=== PATIENT | male | born 1945 | race Caucasian/White ===

== ENCOUNTER 2018-06-22 11:42 | Day surgery (SDC) | payer MEDICARE ==
[~2018-06-22] VITALS: Ht 170.2 cm; Wt 76.4 kg
[~2018-06-22 11:42] MED LIST: FISH OIL 1,2001 EACH PO; METO25ER PO; MULTI VITAMIN1 EACH PO; Simvastatin20 MG PO; Super Calcium600 MG PO; WARF4 PO
== END 2018-06-22 13:55 | disposition home or self-care (01) ==
LOC: ORSCSDS 11:42
PROVIDERS: Ophthalmology
PROC: 08RJ3JZ Replacement of Right Lens with Synthetic Substitute, Percutaneous Approach (ICD-10-PCS; principal; 2018-06-22 13:00)
DX: H25.11 Age-related nuclear cataract, right eye (principal); I10 Essential (primary) hypertension; I49.9 Cardiac arrhythmia, unspecified; I69.351 Hemiplegia and hemiparesis following cerebral infarction affecting right dominant side; Z79.01 Long term (current) use of anticoagulants
CPT/HCPCS: J2001; J2250; J3010; J7120; V2632

== ENCOUNTER 2020-03-24 12:53 | Emergency (ER) | payer MEDICARE ==
[~2020-03-24] VITALS: Ht 172.7 cm; Wt 72.1 kg
[2020-03-24 13:29] LABS: BASOPHILS ABSOLUTE AUTO 0.01 K/mm3 (0.00-0.23); BASOPHILS PERCENT AUTO 0 % (0-2); EOSINOPHILS ABSOLUTE AUTO 0.03 K/mm3 (0.00-0.68); EOSINOPHILS PERCENT AUTO 1 % (0-6); Hematocrit 29.9 % (37.0-53.0); Hemoglobin 9.2 g/dL (13.5-17.5); IMMATURE GRAN ABSOLUTE AUTO 0.02 K/mm3 (0.00-0.10); IMMATURE GRAN PERCENT AUTO 1 % (0-1); LYMPHOCYTES ABSOLUTE AUTO 2.59 K/mm3 (0.84-5.20); LYMPHOCYTES PERCENT AUTO 59 % (21-46); MONOCYTES ABSOLUTE AUTO 0.08 K/mm3 (0.16-1.47); MONOCYTES PERCENT AUTO 2 % (4-13); Mean Corpuscular HGB 35.5 pg (26.0-34.0); Mean Corpuscular HGB Conc 30.8 g/dL (31.5-36.5); Mean Corpuscular Volume 115 fL (80-100); Mean Platelet Volume 10.3 fL (9.1-12.4); NEUTROPHILS ABSOLUTE AUTO 1.68 K/mm3 (1.96-9.15); NEUTROPHILS PERCENT AUTO 38 % (41-73); Platelet Count 250 K/mm3 (150-400); RDW Standard Deviation 64.4 fL (35.1-46.3); Red Blood Cell Count 2.59 M/mm3 (4.30-5.90); White Blood Cell Count 4.41 K/mm3 (4.00-11.30)
[2020-03-24 13:39] LABS: Alanine Aminotransfer (ALT/SGP 17 U/L (12-78); Albumin, Blood 2.5 g/dL (3.4-5.0); Albumin/Globulin Ratio 0.6 (0.8-1.8); Alk Phos 82 U/L (50-136); Anion Gap 5 mmol/L (6-16); Aspartate Aminotrans (AST/SGOT 16 U/L (12-37); Bilirubin, Total 0.5 mg/dL (0.1-1.0); Blood Urea Nitrogen 14 mg/dL (8-24); Bun/Creatinine Ratio 17.4 (12.0-20.0); CO2, Blood 28 mmol/L (21-32); Calcium, Blood 8.7 mg/dL (8.5-10.1); Chloride, Blood 109 mmol/L (98-108); Globulin, Blood 4.3 g/dL (2.2-4.0); Glomerular Filtration Rate >60 (60-); Glucose, Blood 123 mg/dL (70-99); Potassium, Blood 4.5 mmol/L (3.5-5.5); Sodium, Blood 142 mmol/L (136-145); Total Protein, Blood 6.8 g/dL (6.4-8.2)
== END 2020-03-24 14:22 | disposition home or self-care (01) ==
LOC: ER 12:53
PROVIDERS: Emergency Medicine
DX: I95.9 Hypotension, unspecified (principal); R61 Generalized hyperhidrosis; T45.1X5A Adverse effect of antineoplastic and immunosuppressive drugs, initial encounter; Z79.01 Long term (current) use of anticoagulants; Z88.5 Allergy status to narcotic agent; Z79.899 Other long term (current) drug therapy
CPT/HCPCS: 36415; 80053; 85025; 93005; 93010; 96360; 99285-25; J7030

== ENCOUNTER 2022-12-02 12:55 | Inpatient (IN) | payer MEDICARE ==
[~2022-12-02] VITALS: Ht 170.2 cm; Wt 69.2 kg
[~2022-12-02 12:55] MED LIST changes: -DECADRON4 M1 PO
[2022-12-02 14:20] LABS: BASOPHILS ABSOLUTE AUTO 0.01 K/mm3 (0.00-0.23); BASOPHILS PERCENT AUTO 0 % (0-2); EOSINOPHILS ABSOLUTE AUTO 0.01 K/mm3 (0.00-0.68); EOSINOPHILS PERCENT AUTO 0 % (0-6); IMMATURE GRAN ABSOLUTE AUTO 0.03 K/mm3 (0.00-0.10); IMMATURE GRAN PERCENT AUTO 1 % (0-1); LYMPHOCYTES ABSOLUTE AUTO 1.53 K/mm3 (0.84-5.20); LYMPHOCYTES PERCENT AUTO 35 % (21-46); MONOCYTES ABSOLUTE AUTO 0.79 K/mm3 (0.16-1.47); MONOCYTES PERCENT AUTO 18 % (4-13); Mean Corpuscular HGB 43.3 pg (26.0-34.0); Mean Corpuscular HGB Conc 33.7 g/dL (31.5-36.5); Mean Corpuscular Volume 128 fL (80-100); Mean Platelet Volume 9.8 fL (9.1-12.4); NEUTROPHILS ABSOLUTE AUTO 2.02 K/mm3 (1.96-9.15); NEUTROPHILS PERCENT AUTO 46 % (41-73); NRBC ABSOLUTE 0.02 K/mm3 (0.00-0.02); NRBC Auto 0.5 /100 WBC (0.0-0.2); Platelet Count 172 K/mm3 (150-400); RDW Standard Deviation 68.5 fL (35.1-46.3); Red Blood Cell Count 1.27 M/mm3 (4.30-5.90); White Blood Cell Count 4.39 K/mm3 (4.00-11.30)
[2022-12-02 14:24] LABS: Hemoglobin 5.5 g/dL (13.5-17.5)
[2022-12-02 14:25] LABS: Hematocrit 16.3 % (37.0-53.0)
[2022-12-02 14:33] LABS: Albumin, Blood 3.2 g/dL (3.4-5.0); Albumin/Globulin Ratio 0.8 (0.8-1.8); Bilirubin, Total 2.1 mg/dL (0.1-1.0); Bun/Creatinine Ratio 25.7 (12.0-20.0); Calcium, Blood 8.6 mg/dL (8.5-10.1); Creatinine, Blood 1.05 mg/dL (0.60-1.20); Globulin, Blood 3.9 g/dL (2.2-4.0); Potassium, Blood 4.2 mmol/L (3.5-5.5); Total Protein, Blood 7.1 g/dL (6.4-8.2)
[2022-12-02 20:13] LABS: Performing Lab BLOODWORKS; Test Name TYPE AND ABID
[2022-12-02 21:30] LABS: Hematocrit 16.7 % (37.0-53.0); Hemoglobin 5.5 g/dL (13.5-17.5)
[2022-12-02 22:46] VITALS: BP 125/73
--- NOTE | 2022-12-03 01:00 | NUR ---
ARRIVAL TO [facility]/SAFETY & EDUCATION NOTE PT ARRIVED TO [facility] AT APPROXIMATELY 2235. PT TRANSFERED FROM ER [facility] TO HOSPITAL BED WITH SBA. PT A&Ox4, COMMUNICATES NEEDS APPROPRIATELY, ORIENTED TO CALL LIGHT/UNIT. BP STABLE, AFIB 70's, DENIES CP/PRESSURE. SpO2> 92% RA, DENIES SOB. NO S/S OF BLEEDING. BED IN LOWEST POSITION, CALL LIGHT IN REACH. PT & FAMILY EDUCATED RE: IGNITION SOURCES & RISK OF INJURY WHILE OXYGEN IS IN USE. PT DENIES SMOKING AND PT & FAMILY VERBALIZE UNDERSTANDING.
[2022-12-03 01:06] LABS: Hematocrit 16.2 % (37.0-53.0); Hemoglobin 5.2 g/dL (13.5-17.5)
[2022-12-03 03:19] VITALS: BP 110/70
[2022-12-03 05:22] LABS: Hematocrit 18.4 % (37.0-53.0)
--- NOTE | 2022-12-03 05:22 | NUR ---
SHIFT SUMMARY SEE PREVIOUS NOTE. PT A&Ox4, CALLS AND COMMUNICATES NEEDS APPROPRIATELY. BP STABLE, AFIB 50-70's, DENIES CP/PRESSURE. SpO2> 92% RA, DENIES SOB. USES URINAL AT BEDSIDE WITH ASSISTANCE. NO BM THIS SHIFT. NO S/S OF BLEEDING. NO OTHER EVENTS, WILL REPORT TO ONCOMING RN.
[2022-12-03 05:45] LABS: Albumin, Blood 3.3 g/dL (3.4-5.0); Albumin/Globulin Ratio 0.8 (0.8-1.8); Bilirubin, Total 1.6 mg/dL (0.1-1.0); Calcium, Blood 8.6 mg/dL (8.5-10.1); Creatinine, Blood 0.87 mg/dL (0.60-1.20); Globulin, Blood 4.2 g/dL (2.2-4.0); Magnesium, Blood 2.2 mg/dL (1.6-2.4); Potassium, Blood 4.3 mmol/L (3.5-5.5); Total Protein, Blood 7.5 g/dL (6.4-8.2)
[2022-12-03 07:42] VITALS: BP 116/71
[2022-12-03 09:38] LABS: Hemoglobin 5.9 g/dL (13.5-17.5)
[2022-12-03 13:36] VITALS: BP 128/69
[2022-12-03] MEDS ORDERED: DECADRON4 M1 PO ×2 (13:38)
--- NOTE | 2022-12-03 14:01 | NUR ---
PT D/C WENT OVER D/C INFORMATION WITH THE PT AND HIS . ANSWERED ALL QUESTIONS. KWADWO HORN D/C'D IV AND TOOK THE PT OUT VIA WHEELE CHAIR. ALL BELONGINGS SENT HOME. D/C TIME : 1400
[2022-12-04 07:10] LABS: IRON BIND.CAP.(TIBC) 224 ug/dL (250-450); IRON SATURATION 34 % (15-55); IRON, SERUM 76 ug/dL (38-169); UIBC 148 ug/dL (111-343)
[2022-12-05 08:11] LABS: FERRITIN 1093 ng/mL (30-400)
== END 2022-12-03 14:00 | disposition home or self-care (01) | DRG 809 ==
LOC: ER 12:55 → PCU 22:26
PROVIDERS: Student in an Organized Health Care Education/Training Program; ADMIT Nurse Practitioner Acute Care
DX: D59.9 Acquired hemolytic anemia, unspecified (principal); C85.90 Non-Hodgkin lymphoma, unspecified, unspecified site; I48.20 Chronic atrial fibrillation, unspecified; E78.5 Hyperlipidemia, unspecified; Z98.42 Cataract extraction status, left eye; Z88.5 Allergy status to narcotic agent; Z79.899 Other long term (current) drug therapy; Z98.890 Other specified postprocedural states; Z87.39 Personal history of other diseases of the musculoskeletal system and connective tissue
CPT/HCPCS: 36415; 80053; 82728; 83540; 83550; 83735; 84550; 85014; 85018; 85025; 86880; 96374; 97112; 97116; 97162; 97165; 97535; 99284-25; J1100; J7030

== ENCOUNTER → 2022-12-02 | Outpatient (CLI) | payer MEDICARE ==
[~2022-12-02] MED LIST changes: +DECADRON4 M1 PO; +GABA300 PO; +METOPROLOL SUCC25 MG PO; +PREGABALIN75 MG PO; +Prednisone10 MG; +XARELTO20 M1 PO; +ZOCOR20 MG PO
[2022-12-02 11:41] LABS: BASOPHILS ABSOLUTE AUTO 0.01 K/mm3 (0.00-0.23); BASOPHILS PERCENT AUTO 0 % (0-2); EOSINOPHILS ABSOLUTE AUTO 0.01 K/mm3 (0.00-0.68); EOSINOPHILS PERCENT AUTO 0 % (0-6); IMMATURE GRAN ABSOLUTE AUTO 0.03 K/mm3 (0.00-0.10); IMMATURE GRAN PERCENT AUTO 1 % (0-1); LYMPHOCYTES ABSOLUTE AUTO 1.21 K/mm3 (0.84-5.20); LYMPHOCYTES PERCENT AUTO 29 % (21-46); MONOCYTES ABSOLUTE AUTO 0.69 K/mm3 (0.16-1.47); MONOCYTES PERCENT AUTO 16 % (4-13); Mean Corpuscular HGB 42.7 pg (26.0-34.0); Mean Corpuscular HGB Conc 32.9 g/dL (31.5-36.5); Mean Corpuscular Volume 130 fL (80-100); Mean Platelet Volume 10.1 fL (9.1-12.4); NEUTROPHILS ABSOLUTE AUTO 2.27 K/mm3 (1.96-9.15); NEUTROPHILS PERCENT AUTO 54 % (41-73); Platelet Count 187 K/mm3 (150-400); RDW Coefficient Variation 17.2 % (11.7-14.2); RDW Standard Deviation 70.2 fL (35.1-46.3); Red Blood Cell Count 1.31 M/mm3 (4.30-5.90); White Blood Cell Count 4.22 K/mm3 (4.00-11.30)
[2022-12-02 11:48] LABS: Hemoglobin 5.6 g/dL (13.5-17.5)
[2022-12-02 12:03] LABS: Albumin, Blood 3.5 g/dL (3.4-5.0); Albumin/Globulin Ratio 0.9 (0.8-1.8); Bilirubin, Total 2.1 mg/dL (0.1-1.0); Bun/Creatinine Ratio 26.2 (12.0-20.0); Calcium, Blood 8.7 mg/dL (8.5-10.1); Creatinine, Blood 1.03 mg/dL (0.60-1.20); Potassium, Blood 4.2 mmol/L (3.5-5.5); Total Protein, Blood 7.5 g/dL (6.4-8.2)
== END ==
LOC: LAB SHORT 10:45 → LAB 10:45
PROVIDERS: Physician Assistant
DX: R53.83 Other fatigue (principal); R53.1 Weakness
CPT/HCPCS: 80053; 85025

== ENCOUNTER 2025-01-06 19:42 | Inpatient (IN) | payer OTHER ==
[~2025-01-06] VITALS: Ht 172.7 cm; Wt 71.7 kg
[~2025-01-06 19:42] MED LIST changes: +DECADRON4 M1 PO; +Flomax0.4 MG PO
[2025-01-06] MEDS ORDERED: BRUKINSA80 MG PO (21:26)
[2025-01-06] MEDS ORDERED: FINA5 PO (21:27)
[2025-01-06] MEDS ORDERED: FISH OIL 1,2001 EAC4 PO (21:27)
[2025-01-06] MEDS ORDERED: XARELTO20 MG PO (21:27)
[2025-01-06 21:31] LABS: BASOPHILS ABSOLUTE AUTO 0.04 K/mm3 (0.00-0.23); BASOPHILS PERCENT AUTO 1 % (0-2); EOSINOPHILS ABSOLUTE AUTO 0.37 K/mm3 (0.00-0.68); EOSINOPHILS PERCENT AUTO 8 % (0-6); Hematocrit 31.4 % (37.0-53.0); Hemoglobin 10.4 g/dL (13.5-17.5); IMMATURE GRAN ABSOLUTE AUTO 0.01 K/mm3 (0.00-0.10); IMMATURE GRAN PERCENT AUTO 0 % (0-1); LYMPHOCYTES ABSOLUTE AUTO 1.75 K/mm3 (0.84-5.20); LYMPHOCYTES PERCENT AUTO 36 % (21-46); MONOCYTES ABSOLUTE AUTO 0.63 K/mm3 (0.16-1.47); MONOCYTES PERCENT AUTO 13 % (4-13); Mean Corpuscular HGB Conc 33.1 g/dL (31.5-36.5); Mean Corpuscular Volume 100 fL (80-100); NEUTROPHILS ABSOLUTE AUTO 2.06 K/mm3 (1.96-9.15); NEUTROPHILS PERCENT AUTO 42 % (41-73); NRBC ABSOLUTE 0.00 K/mm3 (0.00-0.02); NRBC Auto 0.0 /100 WBC (0.0-0.2); Platelet Count 110 K/mm3 (150-400); RDW Coefficient Variation 14.3 % (11.7-14.2); RDW Standard Deviation 52.4 fL (35.1-46.3)
[2025-01-06 21:51] LABS: Alanine Aminotransfer (ALT/SGP 23.0 U/L (12-78); Albumin, Blood 2.8 g/dL (3.4-5.0); Albumin/Globulin Ratio 1.3 (0.8-1.8); Anion Gap 7.0 mmol/L (3-11); Aspartate Aminotrans (AST/SGOT 19.0 U/L (12-37); Bilirubin, Total 0.3 mg/dL (0.1-1.0); Blood Urea Nitrogen 13.0 mg/dL (8-24); CO2, Blood 22.0 mmol/L (21-32); Calcium, Blood 6.6 mg/dL (8.5-10.1); Chloride, Blood 121.0 mmol/L (98-108); Creatinine, Blood 0.77 mg/dL (0.60-1.20); Globulin, Blood 2.1 g/dL (2.2-4.0); Glucose, Blood 91.0 mg/dL (70-99); Potassium, Blood 3.0 mmol/L (3.5-5.5); Sodium, Blood 147.0 mmol/L (136-145); Total Protein, Blood 4.9 g/dL (6.4-8.2)
[2025-01-06] MEDS ORDERED: NS 1,000 ML IV ONE (23:00)
[2025-01-06] MEDS ORDERED: FentaNYL Citrate 50 MCG/ML 2 ML Injection IV PRN (23:00)
[2025-01-06] MEDS ORDERED: Ondansetron HCl 2 MG / ML 2ML Vial IV PRN (23:00)
[2025-01-06 23:27] LABS: Prothrombin Time Results 14.0 Sec (9.7-11.5)
[2025-01-07] VITALS (20 sets, daily range): BP systolic 114–176; BP diastolic 66–102
[2025-01-07] MEDS ORDERED: CALCIUM GLUC IN NACL, ISO-OSM 50 ML IV ONE (01:10)
--- NOTE | 2025-01-07 01:29 | NUR ---
PT ARRIVED TO ROOM 215 FROM ER. PT A/O X4, VSS, HR IRREGULAR, AFIB 60'S PER TELE MONITOR, SATS >90% ON RA. LLE SHORTENED/EXT ROTATED, CAP REFILL WNL, PT DENIES N/T. PT REP PAIN 3-10. FEW SCATTERED BRUISES, SKIN OTHERWISE CDI. PT REP LAST TOOK XARELTO 8/16 PM. PT ORIENTED TO ROOM/CALL LIGHT AND NPO STATUS. ORTHO CONSULTED, AWAITING SURGERY PLANS.
[2025-01-07 01:48] LABS: Magnesium, Blood 1.6 mg/dL (1.6-2.4); Phosphorus, Blood 2.1 mg/dL (2.5-4.9)
[2025-01-07] MEDS ORDERED: HYDROmorphone HCl/Pf 1MG SYR IV ONE (03:00)
[2025-01-07] MEDS ORDERED: Potassium Phosphate Dibasic 20 MM in Dextrose 5% 500 ML IV STA (06:10)
--- NOTE | 2025-01-07 07:44 | NUR ---
PT VSS SINCE ARRIVING TO FLOOR; HR AFIB 60'S, SATS >90% ON RA. PT REP BETTER PAIN RELIEF AFTER 1X DOSE IV DILAUDID. REP PAIN 06/01 THIS AM. PT NPO AWAITING SURGERY PLANS. BEDSIDE REP GIVEN TO ROME Osei RN.
[2025-01-07] MEDS ORDERED: ZANUBRUTINIB PO SCH (09:00)
[2025-01-07 12:26] LABS: BASOPHILS ABSOLUTE AUTO 0.04 K/mm3 (0.00-0.23); BASOPHILS PERCENT AUTO 1 % (0-2); EOSINOPHILS ABSOLUTE AUTO 0.07 K/mm3 (0.00-0.68); EOSINOPHILS PERCENT AUTO 1 % (0-6); Hematocrit 37.4 % (37.0-53.0); Hemoglobin 12.7 g/dL (13.5-17.5); IMMATURE GRAN ABSOLUTE AUTO 0.02 K/mm3 (0.00-0.10); IMMATURE GRAN PERCENT AUTO 0 % (0-1); LYMPHOCYTES ABSOLUTE AUTO 0.95 K/mm3 (0.84-5.20); LYMPHOCYTES PERCENT AUTO 14 % (21-46); MONOCYTES ABSOLUTE AUTO 1.01 K/mm3 (0.16-1.47); MONOCYTES PERCENT AUTO 15 % (4-13); Mean Corpuscular HGB Conc 34.0 g/dL (31.5-36.5); Mean Corpuscular Volume 98 fL (80-100); NEUTROPHILS ABSOLUTE AUTO 4.69 K/mm3 (1.96-9.15); NEUTROPHILS PERCENT AUTO 69 % (41-73); NRBC ABSOLUTE 0.00 K/mm3 (0.00-0.02); NRBC Auto 0.0 /100 WBC (0.0-0.2); Platelet Count 122 K/mm3 (150-400); RDW Coefficient Variation 14.3 % (11.7-14.2); RDW Standard Deviation 51.8 fL (35.1-46.3)
--- NOTE | 2025-01-07 12:30 | NUR ---
PT TRANSFERED TO SURGERY.
[2025-01-07] MEDS ORDERED: Bupivacaine 0.5% W/EPI 1:200000 SDV 30 ML Vial ONE (12:43)
--- NOTE | 2025-01-07 12:54 | NUR ---
PT HERE VIA BED FROM ROOM 215 FOR LEFT HIP FIXATION Patient confirms NPO status and agrees with scheduled surgery. History, Chart, Medications and Allergies reviewed before start of procedure.Pre-Op teaching done. Pt verbalizes understanding.
[2025-01-07 12:56] LABS: Alanine Aminotransfer (ALT/SGP 28.0 U/L (12-78); Albumin, Blood 3.6 g/dL (3.4-5.0); Albumin/Globulin Ratio 1.5 (0.8-1.8); Anion Gap 6.0 mmol/L (3-11); Aspartate Aminotrans (AST/SGOT 18.0 U/L (12-37); Bilirubin, Total 1.0 mg/dL (0.1-1.0); Blood Urea Nitrogen 10.0 mg/dL (8-24); CO2, Blood 29.0 mmol/L (21-32); Chloride, Blood 108.0 mmol/L (98-108); Creatinine, Blood 0.83 mg/dL (0.60-1.20); Globulin, Blood 2.4 g/dL (2.2-4.0); Glucose, Blood 126.0 mg/dL (70-99); Potassium, Blood 4.4 mmol/L (3.5-5.5); Sodium, Blood 139.0 mmol/L (136-145); Total Protein, Blood 6.0 g/dL (6.4-8.2)
[2025-01-07 12:57] LABS: Calcium, Blood 8.6 mg/dL (8.5-10.1)
[2025-01-07] MEDS ORDERED: Rocuronium Bromide 10 MG/ML 5ML Injection IV ONE (13:08)
[2025-01-07] MEDS ORDERED: Dexamethasone Sod Phos 10 MG/ML 1ML VIAL ONE (13:08)
[2025-01-07] MEDS ORDERED: Ondansetron HCl 2 MG / ML 2ML Vial ONE (13:08)
[2025-01-07] MEDS ORDERED: Sugammadex Sodium 200 MG/2ML SDV (100 MG/ML) ONE (13:09)
[2025-01-07] MEDS ORDERED: FentaNYL Citrate 50 MCG/ML 2 ML Injection ONE (13:11)
[2025-01-07] MEDS ORDERED: CeFAZolin Sodium 2,000 MG in NS 100 ML IV SCH ×2 (13:15→20:00)
[2025-01-07] MEDS ORDERED: ePHEDrine Sulfate 50 MG/ML 1ML Injection ONE (13:23)
[2025-01-07] MEDS ORDERED: Labetalol HCL 5 MG/ML 4ML Injection (Single Dose) IV PRN (14:45)
[2025-01-07] MEDS ORDERED: Ondansetron HCl 2 MG / ML 2ML Vial IV PRN (14:45)
[2025-01-07] MEDS ORDERED: ePHEDrine Sulfate 50 MG/ML 1ML Injection IV PRN (14:45)
[2025-01-07] MEDS ORDERED: FentaNYL Citrate 50 MCG/ML 2 ML Injection IV PRN (14:45)
[2025-01-07] MEDS ORDERED: HYDROmorphone HCl/Pf 1MG SYR IV PRN (14:45)
--- NOTE | 2025-01-07 18:21 | NUR ---
SHIFT SUMMARY PT IS A/OX4. SURGICAL FIX FOR L HIP FRACTURE THIS AFTERNOON. PT DECLINING PAIN MEDICATION SINCE RETURN FROM SURGERY. PT RUNNING AFIB ON TELE. PER REVENUE STAMP CUTTER, SINCE RETURN FROM SURGERY, PT HAS BECOME INCREASINGLY MORE TACHYCARDIC REACHING THE 110-130'S. PHYSICAN NOTIFIED. PT RECIEVED PRN METOPROLOL PO PER JUL. AT BEDSIDE THROUGHOUT THIS EVENING. PT IS PLEASANT AND COOPERATIVE WITH CARE AND CALLS APPROPRIATELY USING THE CALL LIGHT.
[2025-01-07] MEDS ORDERED: BRUKINSA 80 MG PO SCH (21:00)
[2025-01-08 03:14] VITALS: BP 109/71
[2025-01-08 03:28] VITALS: BP 109/71
--- NOTE | 2025-01-08 04:47 | NUR ---
FACSIMILE MACHINE OPERATOR SUMMARY PT IS POD 0 FOR L HIP REPAIR. PT HAS GAUZE DRESSING WITH PRESSURE TAPE TO L HIP THAT HIS C/D/I. PT ABLE TO WIGGLE TOES AND DENIES N/T. PT HAS DENIED NEEDING PAIN MEDS ASIDE FROM SCHEDULED TYLENOL. PT STATES WHEN HE DOESN'T MOVE HE HAS VERY LITTLE PAIN. 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 POST OP ABX COMPLETED. PT ACCIDENTALLY REMOVED HIS IV WHILE SLEEPING, NEW IV PLACED TO RFA. PT ABLE TO STAND AT BEDSIDE USING FWW BUT DID NOT TAKE ANY STEPS. VSS, WCTM.
[2025-01-08 06:28] LABS: BASOPHILS ABSOLUTE AUTO 0.01 K/mm3 (0.00-0.23); BASOPHILS PERCENT AUTO 0 % (0-2); EOSINOPHILS ABSOLUTE AUTO 0.00 K/mm3 (0.00-0.68); EOSINOPHILS PERCENT AUTO 0 % (0-6); Hematocrit 29.1 % (37.0-53.0); Hemoglobin 9.8 g/dL (13.5-17.5); IMMATURE GRAN ABSOLUTE AUTO 0.06 K/mm3 (0.00-0.10); IMMATURE GRAN PERCENT AUTO 1 % (0-1); LYMPHOCYTES ABSOLUTE AUTO 0.89 K/mm3 (0.84-5.20); LYMPHOCYTES PERCENT AUTO 8 % (21-46); MONOCYTES ABSOLUTE AUTO 1.44 K/mm3 (0.16-1.47); MONOCYTES PERCENT AUTO 14 % (4-13); Mean Corpuscular HGB Conc 33.7 g/dL (31.5-36.5); Mean Corpuscular Volume 100 fL (80-100); NEUTROPHILS ABSOLUTE AUTO 8.24 K/mm3 (1.96-9.15); NEUTROPHILS PERCENT AUTO 77 % (41-73); NRBC ABSOLUTE 0.00 K/mm3 (0.00-0.02); NRBC Auto 0.0 /100 WBC (0.0-0.2); Platelet Count 105 K/mm3 (150-400); RDW Coefficient Variation 14.3 % (11.7-14.2); RDW Standard Deviation 52.8 fL (35.1-46.3)
[2025-01-08 06:42] LABS: Anion Gap 7.0 mmol/L (3-11); Blood Urea Nitrogen 18.0 mg/dL (8-24); CO2, Blood 28.0 mmol/L (21-32); Calcium, Blood 8.2 mg/dL (8.5-10.1); Chloride, Blood 106.0 mmol/L (98-108); Creatinine, Blood 1.26 mg/dL (0.60-1.20); Glucose, Blood 135.0 mg/dL (70-99); Potassium, Blood 4.4 mmol/L (3.5-5.5); Sodium, Blood 137.0 mmol/L (136-145)
[2025-01-08 07:07] VITALS: BP 112/73
--- NOTE | 2025-01-08 12:20 | NUR ---
PAUSE NUT CULLER NOTIFIED THIS RN DUE TO A 4.9 SECOND PAUSE. PATIENT ASYMPTOMATIC - SITTING UP IN CHAIR EATING LUNCH. VSS. LOUIE NOTIFIED - ORDER RCVD TO PLACE ZIO PATCH PRIOR TO DC. PATIENT TO WEAR X2 WEEKS AND TO FOLLOW UP W/ CARDIOLOGY.
[2025-01-08 12:23] VITALS: BP 119/76
[2025-01-08] MEDS ORDERED: Percocet 5-3251 EACH PO (12:32)
[2025-01-08 15:19] VITALS: BP 127/80
--- NOTE | 2025-01-08 15:37 | NUR ---
DISCHARGE NOTE PATIENT ALERT AND ORIENTED X4. COMMUNICATES NEEDS EFFECTIVELY. FOLLOWS COMMANDS APPROPRIATELY. VSS. TELEMETRY SHOWING AFLUTTER 40s-50s w/ SLEEP AND 70s-80s WHILE AWAKE. X1 4.9 SECOND PAUSE (SEE PREVIOUS NOTE) - ASYMPTOMATIC. NO FURTHER EVENTS REPORTED BY TELEMETRY PRIOR TO REMOVAL. ZIO PATCH PLACED BY [facility] PRIOR TO DC - PATIENT TO FOLLOW UP W/ DAY CARE AIDE IN X2 WEEKS, PATIENT VERBALIZES UNDERSTANDING. POD 1 L HIP RODDING - GAUZE AND PRESSURE TAPE DRESSING CHANGED TO AQUACEL THIS MORNING. INCISION SITES WNL - DRESSING C/D/I. EXTRA DRESSINGS PROVIDED FOR INCISION CARE AT HOME PRN. PAIN TOLERABLE W/ PRESCRIBED MEDICATION. PT EVAL COMPLETED - HOME W/ HH. AMBULATING W/ SBA FWW GB. TOLERATING PO INTAKE. VOIDING. IV REMOVED. WRITTEN AND VERBAL EDUCATION PROVIDED - PATIENT STATES UNDERSTANDING. PATIENTs TO TRANSPORT PATIENT HOME. PATIENT TRANSFERRED OFF UNIT VIA AT APPROX 1535. PERSONAL BELONGINGS W/ PATIENTs .
== END 2025-01-08 15:37 | disposition home or self-care (01) | DRG 481 ==
LOC: ER 19:42 → SURS 22:09
PROVIDERS: Family Medicine; Orthopaedic Surgery; Student in an Organized Health Care Education/Training Program; ADMIT Internal Medicine
PROC: 0QS736Z Reposition Left Upper Femur with Intramedullary Internal Fixation Device, Percutaneous Approach (ICD-10-PCS; principal; 2025-01-07 13:30)
DX: S72.142A Displaced intertrochanteric fracture of left femur, initial encounter for closed fracture (principal); E87.0 Hyperosmolality and hypernatremia; I48.20 Chronic atrial fibrillation, unspecified; Z79.01 Long term (current) use of anticoagulants; Z79.899 Other long term (current) drug therapy; E78.5 Hyperlipidemia, unspecified; E87.6 Hypokalemia; E87.8 Other disorders of electrolyte and fluid balance, not elsewhere classified; N18.30 Chronic kidney disease, stage 3 unspecified; D63.1 Anemia in chronic kidney disease; D69.6 Thrombocytopenia, unspecified; Z85.72 Personal history of non-Hodgkin lymphomas; Z98.42 Cataract extraction status, left eye; Z98.890 Other specified postprocedural states; W18.30XA Fall on same level, unspecified, initial encounter
CPT/HCPCS: 36415; 73502; 80048; 80053; 83735; 83880; 84100; 85025; 85610; 86850; 86870; 86900; 86901; 93246; 94760; 97110; 97116; 97162; 99285-25; A6590; A9270; C1713; C1769; J0612; J0690; J1100; J1171; J2405; J2704; J3010; J3480; J7030; J7050; J7060; J7120